=== PATIENT | female | born 1930 | race Caucasian/White ===

== ENCOUNTER 2017-09-14 08:09 | Observation (INO) | payer MEDICARE, BC ==
[2017-09-14 08:40] LABS: Hematocrit 37.2 % (37.0-47.0); Hemoglobin 12.5 gm/dL (12.5-16.0); Mean Cell Volume 90.1 fl (78-100); Mean Corpuscular Hemoglobin 30.3 pg (27-31); Mean Corpuscular Hgb Conc 33.6 g/dl (32-36); Mean Platelet Volume 11.4 fl (6.0-9.5); Neutrophil # 2.7 K/mm3 (1.3-6.0); Platelet Count 91 K/mm3 (150-450); Red Blood Count 4.13 M/mm3 (4.2-5.4); Red Cell Distribution Width 13.5 % (11.5-14.0); White Blood Count 4.8 K/mm3 (4.0-10.5)
[2017-09-14 08:52] LABS: Prothrombin Time (Patient) 10.5 Seconds (9.0-11.0)
[2017-09-14 08:59] LABS: Troponin I Less than 0.017 ng/ml (0.00-0.10)
[2017-09-14 09:01] LABS: ALT 16 U/L (19-67); AST 11 U/L (0-48); Albumin * 3.4 gm/dl (3.4-5.0); Alkaline Phosphatase * 102 U/L (50-170); Anion Gap 4.5 mmol/L (6.8-13.8); BNP * 259 pg/mL (5-550); BUN/Creatinine Ratio 15.4 (9.0-21.6); Bilirubin, Total 0.4 mg/dL (0.0-1.1); Blood Urea Nitrogen 19 mg/dL (3-23); Ca. Corrected For Albumin 9.1 mg/dL (8.4-10.2); Calcium * 8.9 mg/dL (7.9-10.9); Carbon Dioxide 31.9 mmol/L (24-32.6); Chloride 104 mmol/L (97-106); Glucose * 153 mg/dL (70-110); INR 1.05 INR (0.90-1.10); Partial Thrombolplastin Time 28.5 Seconds (24-32); Potassium 3.4 mmol/L (3.4-4.6); Sodium 137 mmol/L (132-142); Total Protein 6.7 gm/dL (6.2-8.2)
[2017-09-14] MEDS ORDERED: traMADol HCL 50 MG TABLET PO ONE (10:30)
[2017-09-14] MEDS ORDERED: traMADol HCL 50 MG TABLET ONE (10:34)
--- NOTE | 2017-09-14 10:34 | ERNOTE ---
Chest Pain/Cardiac HPI Date of Service: 09/14/17 Chief Complaint: Chest Pain Time Seen by Provider: 09/14/17 08:28 Source: patient Exam Limitations: no limitations Immunizations: IMMUNIZATION HX Immunizations Up to Date Yes History of Influenza Vaccine No Hx Pneumococcal Vaccination Yes Allergies/Adverse Reactions: Allergies caffeine [From Anacin] Allergy (Verified 09/14/17 08:28) morphine Allergy (Verified 09/14/17 08:28) Home Medications: HOME MEDICATIONS Albuterol Sulfate [Albuterol Sulfate 0.63 MG/3ML] 0.63 mg IH Q4H PRN 08/09/15 [ Last Taken Unknown] Glimepiride 4 mg PO DAILY 08/09/15 [Last Taken Unknown] LORazepam [Ativan] 0.5 mg PO TID PRN 08/09/15 [Last Taken Unknown] amLODIPine BESYLATE [Norvasc] 5 mg PO DAILY 08/09/15 [Last Taken Unknown] Aspirin [Aspirin Chewable] 81 mg PO DAILY 09/14/17 [Last Taken Unknown] Clopidogrel Bisulfate [Plavix] 75 mg PO DAILY 09/14/17 [Last Taken Unknown] Furosemide [Lasix] 20 mg PO DAILY 09/14/17 [Last Taken Unknown] Isosorbide Mononitrate [Imdur] 30 mg PO DAILY 09/14/17 [Last Taken Unknown] Nitroglycerin [Nitrostat] 0.4 mg SL Q5MIN PRN 09/14/17 [Last Taken Unknown] Pantoprazole Sodium [Protonix] 40 mg PO DAILY 09/14/17 [Last Taken Unknown] chlordiazePOXIDE/CLIDINIUM BR [Librax Capsule] 1 each PO DAILY 09/14/17 [Last Taken Unknown] traMADol HCL [Ultram] 50 mg PO QID PRN 09/14/17 [Last Taken Unknown] Narrative: patient presents to the ED via ambulance for chest pain. She relates this CP started this morning before it was light. She has never had anything like it before. It does go to her right shoulder. She has some mild pain lsat night but this resolved. She has Hx of stent but this does not feel like her other heart pains completely. No trouble breathing. She did have a dizzy spell and a fall 2 days ago but does not know if she hit her chest. Timing: constant Severity/Quality: moderate Location: other - right chest Chest Pain Radiation: other - right choulder Activities at Onset: none Modifying Factors - Improves: Present: nothing Modifying Factors - Worsens: Present: nothing Nitro Today/Relief: 0.4 mg x 3 Aspirin Treatment Today: 325 mg x 1, provided by EMS Associated Symptoms: Absent: headache, shortness of breath, fever/chills, abdominal pain Prior Chest Pain/Cardiac Workup: Reports: prior chest pain Review of Systems - Review of Systems Constitutional: Absent: fever ENT: Absent: sore throat Respiratory: Present: See HPI Cardiology: Present: chest pain Gastrointestinal/Abdominal: Absent: abdominal pain Genitourinary: Absent: dysuria Musculoskeletal: Absent: back pain Neurological: Absent: weakness All Other Systems: All systems neg except as marked - Patient's Past Medical History Patient History - Medical: Diabetes Type 2, GERD, Osteoporosis Patient History - Cardiac/Respiratory: History Unknown Patient History - Cancer: No Hx of Cancer Patient History - Surgical Procedures: Cholecystectomy, Hysterectomy Patient History - Other: None - Family History Father Family History - Medical: Mother Family History - Medical: , No pertinent hx - Social History Living Situations: home Abuse History: No History of abuse Psych History: No pertinent hx Alcohol Use: none Drug Use: none - Immunizations Immunizations Up to Date: Yes Hx Pneumococcal Vaccination: Yes History of Influenza Vaccine: No Physical Exam - Physical Exam General Appearance: Present: alert, no apparent distress Head Exam: Present: normal inspection, no evidence of injury Eye Exam: Normal inspection: bilateral, PERRL: bilateral Ears, Nose, Throat: Present: normal ENT inspection Neck: Present: normal inspection Respiratory: Present: no respiratory distress, normal breath sounds, no accessory muscle use, lungs clear Cardiovascular/Chest: Present: regular rate, rhythm, normal peripheral pulses, other - there is right chest wall tenderness that does seem to reproduce her pain Gastrointestinal/Abdominal: Present: normal bowel sounds, nontender, nondistended, soft Back Exam: Absent: CVA tenderness (R), CVA tenderness (L) Extremity Exam: Present: normal inspection, other - no findings of DVT. Neurological Exam: Present: alert, normal mood/affect, no motor/sensory deficits Skin Exam: Present: normal color, warm/dry ED Progress - Results and Orders Patient's Lab Results:: I have reviewed the patient's lab results. - Vital Signs Patient's Vital Signs:: I have reviewed the patient's vital signs. Vital Signs: Vital Signs 09/14/17 09/14/17 09/14/17 08:18 08:26 08:45 Temperature 36.2 C L Pulse Rate 74 71 69 Respiratory 18 22 H 18 Rate Blood Pressure 204/75 212/82 O2 Sat by Pulse 95 95 95 Oximetry 09/14/17 09/14/17 09/14/17 08:54 09:09 09:24 Temperature Pulse Rate 69 69 67 Respiratory 15 15 17 Rate Blood Pressure 191/56 121/65 221/90 O2 Sat by Pulse 94 93 94 Oximetry 09/14/17 09:57 Temperature Pulse Rate 67 Respiratory 18 Rate Blood Pressure 138/64 O2 Sat by Pulse 95 Oximetry - EKG EKG read: Interp. by me EKG Comments: I feel this is NSR with PACs. Non-specific ST/T wave changes, no evidence of STEMI. - X-Ray X-Ray #1 X-Ray: chest Interpretation: Interp. by me X-ray Comments: Not being read in real-time by radiologist. No clear pneumonia. Elevated right josias diaphragm. X-Ray #2 X-Ray: ribs Interpretation: Interp. by me X-ray Comments: Not being read in real-time by radiology. No clear acute fracture. - Progress/Reassessment Chief Complaint: Chest Pain Progress Note-Subjective: 09/14/17 10:39 Patient requires rule out given her Hx. She does have reproducible tenderness in her chest which may be the etiology but a rule out will hopefully delineate this further. D/W Dr Parra who will admit. Pt agreeable. Departure Clinical Impression: Chest pain - Departure Disposition: [facility] Condition: Stable
[2017-09-14] MEDS ORDERED: ACETAMINOPHEN 500 MG TABLET PO PRN (14:20)
[2017-09-14] MEDS ORDERED: NITROGLYCERIN 0.4 MG/TAB BTL SL PRN (14:28)
[2017-09-14] MEDS ORDERED: ENOXAPARIN SODIUM 30 MG/0.3 ML SYRG SC SCH (14:30)
--- NOTE | 2017-09-14 14:53 | HP ---
Chief Complaint - Chief Complaint Date of Service: 09/14/17 Time of Service: 11:00 Chief Complaint: chest pain History of Present Illness: Ingris Greene is an 87-year-old female who presents to ER following several episodes of chest achiness with heaviness and pressure in the anterior substernal chest. It is sometimes associated with shortness of breath and lightheadedness and has radiated into the neck and jaw some. She had a percutaneous aortic valve replacement done 2 weeks ago. She had been having lightheadedness prior to that with the procedure has not stopped lightheadedness. - Patient's Past Medical History Patient History - Medical: Diabetes Type 2, GERD, Osteoporosis Patient History - Cardiac/Respiratory: Angina, CHF, Hypertension, Valvular Heart Disease Patient History - Cancer: No Hx of Cancer Patient History - Surgical Procedures: Cholecystectomy, Hysterectomy Patient History - Other: None - Family History Father Family History - Medical: Family History - Cardiac/Respiratory: No pertinent hx Family History - Cancer: Brain Mother Family History - Medical: , Diabetes Type 2 Family History - Cardiac/Respiratory: CHF Family History - Cancer: No pertinent family hx - Social History Living Situations: home Abuse History: No History of abuse Psych History: No pertinent hx Smoking Status: Never smoker Have you smoked in the past 12 months: No Alcohol Use: none Drug Use: none - Immunizations Immunizations Up to Date: Yes Hx Pneumococcal Vaccination: Yes History of Influenza Vaccine: No Review Of Systems (GEN) - Review of Systems Generalized/Overall Review: Present: No Symptoms Reported EENTM: Present: No Symptoms Reported Respiratory: Present: No Symptoms Reported, Shortness of Breath - Occasional and especially if she gets chest discomfort Cardiac: Present: Chest Pain, Other - Lightheadedness Abdominal: Present: No Symptoms Reported Genitourinary: Present: Burning, Urgency, Frequency Musculoskeletal: Present: No Symptoms Reported Neurological: Present: No Symptoms Reported Skin: Present: No Symptoms Reported Endocrine: Present: No Symptoms Reported Misc: All systems neg except as marked Immunizations: IMMUNIZATION HX Immunizations Up to Date Yes History of Influenza Vaccine No Hx Pneumococcal Vaccination Yes Allergies/Adverse Reactions: Allergies Allergy/AdvReac Type Severity Reaction Status Date / Time caffeine [From Anacin] Allergy Verified 09/14/17 11:46 morphine Allergy Verified 09/14/17 11:46 Home Medications: HOME MEDICATIONS Glimepiride 4 mg PO BID 08/09/15 [Last Taken Unknown] LORazepam [Ativan] 0.5 mg PO HS 08/09/15 [Last Taken Unknown] amLODIPine BESYLATE [Norvasc] 10 mg PO DAILY 08/09/15 [Last Taken Unknown] Acetaminophen 500 mg PO Q6H PRN 09/14/17 [Last Taken Unknown] Albuterol Sulfate [Ventolin HFA] 2 puff IH Q6H 09/14/17 [Last Taken Unknown] Aspirin [Aspirin Chewable] 81 mg PO DAILY 09/14/17 [Last Taken Unknown] Ciprofloxacin HCl [Cipro] 250 mg PO BID 09/14/17 [Last Taken Unknown] Clopidogrel Bisulfate [Plavix] 75 mg PO DAILY 09/14/17 [Last Taken Unknown] Furosemide [Lasix] 40 mg PO DAILY 09/14/17 [Last Taken Unknown] Isosorbide Mononitrate [Imdur] 30 mg PO HS 09/14/17 [Last Taken Unknown] Mupirocin [Bactroban] 1 appl TP BID 09/14/17 [Last Taken Unknown] Nitroglycerin [Nitrostat] 0.4 mg SL Q5MIN PRN 09/14/17 [Last Taken Unknown] Pantoprazole Sodium [Protonix] 40 mg PO DAILY 09/14/17 [Last Taken Unknown] Polyethylene Glycol 3350 [Miralax] 17 gm PO DAILY PRN 09/14/17 [Last Taken Unknown] chlordiazePOXIDE/CLIDINIUM BR [Chlordiazepoxide-Clidinium Cap] 1 each PO DAILY 09/14/17 [Last Taken Unknown] traMADol HCL [Ultram] 50 mg PO Q4H PRN 09/14/17 [Last Taken Unknown] Exam - Exam Vital Signs: Vital Signs - Last Taken Temp 36.8 C 09/14/17 11:34 Pulse 76 09/14/17 11:34 Resp 18 09/14/17 11:34 BP 220/61 09/14/17 11:34 Pulse Ox 98 09/14/17 11:34 Constitutional: Present: Alert, Oriented x3, Cooperative, Well developed, Well nourished, No distress ENT Exam: Present: normal ENT inspection Eye Exam: bilateral eye: normal inspection, PERRL, EOMI, abnormal EOM Neck: Present: non-tender, full range of motion, supple, normal inspection Back Exam: Present: normal inspection, no CVA tenderness, no vertebral tenderness Breasts: Present: Exam deferred Respiratory: Present: chest non-tender, lungs clear, normal breath sounds, no respiratory distress Cardiovascular/Chest: Present: normal peripheral pulses, regular rate, rhythm, no chest tenderness, no edema Peripheral Pulses: carotid (R): 2+, carotid (L): 2+ Abdomen: Present: Normal bowel sounds, soft, nontender, nondistended, no rebound tenderness, no hepatospenomegaly, no masses /Rectal: Present: Exam deferred Extremity: Present: normal range of motion, non-tender, normal inspection, no pedal edema, no calf tenderness, normal capillary refill Skin Exam: Present: normal color, warm/dry Lymphatic: Present: no adenopathy Neurologic: Present: porter sample case II-XII nml as tested, normal cerebellar test, no motor/ sensory deficits, alert, normal mood/affect, oriented x 3 Appearance: Present: appropriate appearance, appropriate insight, neat, no memory impairment Eye contact: Present: cooperative, good eye contact, normal speech Thoughts: Present: normal thought pattern, no apparent hallucination Diagnostic Studies: Laboratory Results WBC 4.8 K/mm3 (4.0-10.5) 09/14/17 08:34 RBC 4.13 M/mm3 (4.2-5.4) L 09/14/17 08:34 Hgb 12.5 gm/dL (12.5-16.0) 09/14/17 08:34 Hct 37.2 % (37.0-47.0) 09/14/17 08:34 MCV 90.1 fl (78-100) 09/14/17 08:34 MCH 30.3 pg (27-31) 09/14/17 08:34 MCHC 33.6 g/dl (32-36) 09/14/17 08:34 RDW 13.5 % (11.5-14.0) 09/14/17 08:34 Plt Count 91 K/mm3 (150-450) L 09/14/17 08:34 MPV 11.4 fl (6.0-9.5) H 09/14/17 08:34 Immature Gran % (Auto) 0.60 % (0.001-0.429) H 09/14/17 08:34 Immature Gran # (Auto) 0.03 K/mm3 (0.000-0.0310) 09/14/17 08:34 Neutrophils % 57.0 % (42-75.0) 09/14/17 08:34 Lymphocytes % 28.3 % (20-51) 09/14/17 08:34 Monocytes % 8.5 % (0.0-9) 09/14/17 08:34 Eosinophils % 5.0 % (0.0-3.0) H 09/14/17 08:34 Basophils % 0.6 % (0.0-1.0) 09/14/17 08:34 Nucleated RBC % 0.0 k/mm3 (0-1) 09/14/17 08:34 Neutrophils # 2.7 K/mm3 (1.3-6.0) 09/14/17 08:34 Lymphocytes # 1.4 k/mm3 (1.5-3.5) L 09/14/17 08:34 Monocytes # 0.4 k/mm3 (0.0-1.0) 09/14/17 08:34 Eosinophils # 0.2 k/mm3 (0.0-0.7) 09/14/17 08:34 Absolute Basophils 0.0 k/mm3 (0.0-0.1) 09/14/17 08:34 PT 10.5 Seconds (9.0-11.0) 09/14/17 08:34 INR (Anticoag Therapy) 1.05 INR (0.90-1.10) 09/14/17 08:34 PTT ([place]) 28.5 Seconds (24-32) 09/14/17 08:34 Sodium 137 mmol/L (132-142) 09/14/17 08:34 Plasma Sodium 138 mmol/L (130-142) 09/14/17 08:34 Potassium 3.4 mmol/L (3.4-4.6) 09/14/17 08:34 Chloride 104 mmol/L (97-106) 09/14/17 08:34 Carbon Dioxide 31.9 mmol/L (24-32.6) 09/14/17 08:34 Anion Gap 4.5 mmol/L (6.8-13.8) L 09/14/17 08:34 BUN 19 mg/dL (3-23) 09/14/17 08:34 Creatinine 1.23 mg/dL (0.4-1.4) 09/14/17 08:34 Est GFR (Non-Af Amer) 44 mL/min (60-130) L D 09/14/17 08:34 BUN/Creatinine Ratio 15.4 (9.0-21.6) 09/14/17 08:34 Random Glucose 153 mg/dL (70-110) H 09/14/17 08:34 Calcium 8.9 mg/dL (7.9-10.9) 09/14/17 08:34 Calcium Adj for Albumin 9.1 mg/dL (8.4-10.2) 09/14/17 08:34 Total Bilirubin 0.4 mg/dL (0.0-1.1) 09/14/17 08:34 AST 11 U/L (0-48) 09/14/17 08:34 ALT 16 U/L (19-67) L 09/14/17 08:34 Alkaline Phosphatase 102 U/L (50-170) 09/14/17 08:34 Troponin I Less than 0.017 ng/ml (0.00-0.10) 09/14/17 08:34 B-Natriuretic Peptide 259 pg/mL (5-550) 09/14/17 08:34 Total Protein 6.7 gm/dL (6.2-8.2) 09/14/17 08:34 Albumin 3.4 gm/dl (3.4-5.0) 09/14/17 08:34 Assessment/Plan - Narrative Narrative: Mrs. Greene is admitted for chest pain with unstable angina symptoms. We will do serial troponins and EKGs and in intervene should she have more chest discomfort. I'll keep her on her usual medications. 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
[2017-09-14] MEDS: ALBUTEROL SULFATE 2.5 MG/0.5 ML VIAL.NEB IH SCH ×2 (16:14→19:53)
[2017-09-14] MEDS ORDERED: ZOLPIDEM TARTRATE 5 MG TABLET PO SCH (21:00)
[2017-09-14] MEDS ORDERED: CIPROFLOXACIN HCL 250 MG TABLET PO SCH (21:00)
[2017-09-14] MEDS: CIPROFLOXACIN HCL 250 MG TABLET PO SCH (21:05)
[2017-09-15] MEDS: ALBUTEROL SULFATE 2.5 MG/0.5 ML VIAL.NEB IH SCH ×3 (01:48→14:59)
[2017-09-15 05:44] LABS: Hematocrit 36.5 % (37.0-47.0); Hemoglobin 12.3 gm/dL (12.5-16.0); Mean Cell Volume 90.1 fl (78-100); Mean Corpuscular Hemoglobin 30.4 pg (27-31); Mean Corpuscular Hgb Conc 33.7 g/dl (32-36); Mean Platelet Volume 12.1 fl (6.0-9.5); Neutrophil % 57.6 % (42-75.0); Platelet Count 90 K/mm3 (150-450); Red Blood Count 4.05 M/mm3 (4.2-5.4); Red Cell Distribution Width 13.8 % (11.5-14.0); White Blood Count 5.2 K/mm3 (4.0-10.5)
[2017-09-15 05:59] LABS: Albumin * 3.3 gm/dl (3.4-5.0); Anion Gap 12.2 mmol/L (6.8-13.8); BUN/Creatinine Ratio 16.2 (9.0-21.6); Bilirubin, Total 0.2 mg/dL (0.0-1.1); Ca. Corrected For Albumin 9.3 mg/dL (8.4-10.2); Calcium * 9.1 mg/dL (7.9-10.9); Carbon Dioxide 29.6 mmol/L (24-32.6); Chol/HDL Risk Ratio 4.3 mg/dL (3.3-4.4); Potassium 3.8 mmol/L (3.4-4.6); Total Protein 6.7 gm/dL (6.2-8.2)
[2017-09-15] MEDS: CIPROFLOXACIN HCL 250 MG TABLET PO SCH (08:07)
[2017-09-15] MEDS ORDERED: CHLORDIAZEPOXIDE PO SCH (09:00)
[2017-09-15] MEDS ORDERED: amLODIPine BESYLATE 10 MG TABLET PO SCH (09:00)
[2017-09-15] MEDS ORDERED: ASPIRIN 81 MG TAB.CHEW PO SCH (09:00)
[2017-09-15] MEDS ORDERED: CLIDINIUM BR PO SCH (09:00)
--- NOTE | 2017-09-15 13:36 | DS ---
(1) Chest pain Problem: Acute Qualifiers: Chest pain type: precordial pain Qualified Code(s): R07.2 - Precordial pain (2) Acute viral bronchitis Problem: Acute (3) Viral sinusitis Problem: Acute Description of Stay: Margaret Greene is an 87-year-old female who presented to ER with substernal chest discomfort associated with shortness of breath and radiating into the neck and jaw area. 2 weeks ago she had a percutaneous aortic valve replacement. She had been having lightheadedness before that but had never actually had a syncopal event. It was thought to be due to aortic stenosis. However, the lightheadedness has persisted for 2 weeks after the procedure. Procedures Performed: none Discharge Disposition: Home self care Disposition: Home self-care Condition: Fair Discharge Activity: Activity as tolerated Discharge Diet: General/regular food Additional Patient Instructions (free text): -Please make TCM appointment unless retirement discharge. Thank you! Rochelle @ [phone]. Complete Home Medications List: Complete Home Medication List: Glimepiride 4 mg PO BID 08/09/15 LORazepam [Ativan] 0.5 mg PO HS 08/09/15 amLODIPine BESYLATE [Norvasc] 10 mg PO DAILY 08/09/15 Acetaminophen 500 mg PO Q6H PRN 09/14/17 Albuterol Sulfate [Ventolin HFA] 2 puff IH Q6H 09/14/17 Aspirin [Aspirin Chewable] 81 mg PO DAILY 09/14/17 Ciprofloxacin HCl [Cipro] 250 mg PO BID 09/14/17 Clopidogrel Bisulfate [Plavix] 75 mg PO DAILY 09/14/17 Furosemide [Lasix] 40 mg PO DAILY 09/14/17 Isosorbide Mononitrate [Imdur] 30 mg PO HS 09/14/17 Mupirocin [Bactroban] 1 appl TP BID 09/14/17 Nitroglycerin [Nitrostat] 0.4 mg SL Q5MIN PRN 09/14/17 Pantoprazole Sodium [Protonix] 40 mg PO DAILY 09/14/17 Polyethylene Glycol 3350 [Miralax] 17 gm PO DAILY PRN 09/14/17 chlordiazePOXIDE/CLIDINIUM BR [Chlordiazepoxide-Clidinium Cap] 1 each PO DAILY 09/14/17 traMADol HCL [Ultram] 50 mg PO Q4H PRN 09/14/17
[2017-09-15 14:39] VITALS: BP 175/59
== END 2017-09-15 15:25 | disposition home or self-care (01) ==
LOC: ER 08:09 → MS 10:36
PROVIDERS: ADMIT Family Medicine; ATTEND Family Medicine
DX: R07.9 Chest pain, unspecified (principal); R42 Dizziness and giddiness; R07.2 Precordial pain; J20.8 Acute bronchitis due to other specified organisms; J01.80 Other acute sinusitis; Z95.828 Presence of other vascular implants and grafts; E11.9 Type 2 diabetes mellitus without complications; Z79.84 Long term (current) use of oral hypoglycemic drugs; K21.9 Gastro-esophageal reflux disease without esophagitis; M81.0 Age-related osteoporosis without current pathological fracture; I50.9 Heart failure, unspecified; I10 Essential (primary) hypertension; Z68.32 Body mass index [BMI] 32.0-32.9, adult
CPT/HCPCS: 36415; 71046; 71100; 80053; 80061; 83880; 84484; 85025; 85610; 85730; 87081; 93005; 94640; 96372; 99285; G0378